=== PATIENT | female | born 1955 | race Caucasian/White ===

== ENCOUNTER 2019-06-25 18:06 | Emergency (ER) | payer OTHER, MEDICARE, SELFPAY ==
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
[2019-06-25 18:26] VITALS: BP 170/59; PULSE 60; RESP 20; TEMP 36.1; O2SAT 99
== END 2019-06-25 18:50 | disposition home or self-care (01) ==
PROVIDERS: Emergency Provider Nurse Practitioner Family
DX: G24.3 Spasmodic torticollis (principal); V49.40XA Driver injured in collision with unspecified motor vehicles in traffic accident, initial encounter; I10 Essential (primary) hypertension
CPT/HCPCS: 99212; G0463

== ENCOUNTER 2019-08-18 01:00 | Day surgery (SDC) | payer MEDICARE, OTHER, SELFPAY ==
[2019-08-17 14:27] VITALS: BMI 30.1
[2019-08-18] VITALS (9 sets, daily range): BP systolic 134–165; BP diastolic 61–93; PULSE 49–67; RESP 10–20; TEMP 36.1–36.7; O2SAT 92–100
[2019-08-18] MEDS: LACTATED RINGERS 1,000 ML 30 ML IV CONT ×2 (11:00→16:20)
--- NOTE | 2019-08-18 13:15 | SUR.PREOP ---
1315-PT AWARE PRIOR SURGERY DELAYS ROOM UNDETERMINED AMOUNT OF TIME.
--- NOTE | 2019-08-18 13:26 | P.PNAN_ITS ---
Anes - Initial Pre Proc Eval Procedure: Operation Date: 08/18/19 12:30 Proposed Procedures p Laparoscopic Bilateral Oophorectomy - Michele Pino MD Date/Time: 08/18/19 13:26 Surgeon: Michele Pino MD Pre Op Diagnosis: Pelvic Swelling and Mass Patient Data Age: 64 Gender: F Height: 5 ft 3 in Weight: 77 kg Last Vital Signs Temp 36.7 C 08/18/19 10:50 Pulse 60 08/18/19 10:50 Resp 20 08/18/19 10:50 BP 155/78 H 08/18/19 10:50 Pulse Ox 98 08/18/19 10:50 Allergies Allergy/AdvReac Type Severity Reaction Status Date / Time prochlorperazine Allergy Unknown SKIN Verified 08/18/19 11:19 TIGHTENING OF FOREHEAD Home Medications Medication Instructions Recorded Confirmed Type lisinopril 20 mg PO DAILY 06/25/19 08/18/19 History metoprolol tartrate 50 mg PO DAILY 06/25/19 08/18/19 History Protandim 1 cap PO DAILY 08/17/19 08/18/19 History Tumeric 1 cap PO DAILY 08/17/19 08/18/19 History Vitamin B-12 1 tablet PO DAILY 08/17/19 08/18/19 History Vitamin C 1 tablet PO DAILY 08/17/19 08/18/19 History aspirin 325 mg PO DAILY 08/17/19 08/18/19 History calcium carb-D3-mag ox-zinc ox 1 tablet PO DAILY 08/17/19 08/18/19 History [Carlos Mag Zinc Plus D3] milk thistle 1 cap PO DAILY 08/17/19 08/18/19 History multivitamin 1 tablet PO DAILY 08/17/19 08/18/19 History omega 6-fcv-fjs-fish oil [[place]-3] 1 cap PO DAILY 08/17/19 08/18/19 History vitamin E 400 unit PO DAILY 08/17/19 08/18/19 History Patient hx anesthesia problems: post op nausea/vomiting Family hx anesthesia problems: post op nausea/vomiting PMFSH Past Medical History Medical History Hypertension Neuropathy Anes - Eval Final PreProcedure Day of Procedure 08/18/19 13:26 Patient weight: obese Heart: regular rate and rhythm Lungs: decreased breath sounds Airway: Mallampati scale class II Neurological: alert and oriented Last oral intake: >/= 8 hours ASA classification: III Anesthetic plan: proceed Anesthesia type and monitoring: general ETT and standard monitoring Informed Consent: The patient's anesthetic plan and its attendant risks and benefits were discussed with the patient/family/POA. Questions were solicited and answers provided to the satisfaction of the patient/family/POA.
--- NOTE | 2019-08-18 13:28 | WPDHPUPDATE1 ---
History and Physical Update Update Date/Time: 08/18/19 13:28 History and Physical has been reviewed, including an updated exam of the patient. There are NO changes in the patient's condition. Risks, benefits, and alternatives have been discussed and questions answered. Patient agrees to proceed with procedure.
--- NOTE | 2019-08-18 15:29 | PM.PROC ---
Procedure Note - Detailed Date of procedure: 08/18/19 Pre-op diagnosis: Pelvic Swelling and Mass Procedure performed: Laparoscopic BSO Description of procedure: The patient was taken the operating room. She was prepped and draped in the dorsal lithotomy position after induction of general anesthesia. A 5 mm left upper quadrant incision was made in the abdominal skin with a scalpel. A 5 mm trocar was inserted the intra-abdominal cavity under direct visualization of the scope. A 11 mm left lower quadrant incision was made with the scalp on the abdominal skin and a 11 mm trocar was inserted the intra-abdominal cavity under direct visualization of the scope. A 5 mm infraumbilical incision was made with scalpel and a 5 mm trocar was inserted into the intra-abdominal cavity under direct visualization of the scope. On the right side the infundibulopelvic ligament was isolated. It was cauterized and transected. This was performed after the identification of the ureter. The ureters were found to be significantly anterior to the infundibulopelvic ligament at that point. The paratubal tissue was cauterized transected with cautery and scissors. This was performed in a stepwise fashion moving medially to the cornual region of the tube. The fallopian tube and suspensory ligament the ovary within cauterized transected with cautery and scissors. The ovary was placed in an endobag. It was taken out in pieces through the left lower quadrant trocar site. It was enlarged due to the tumor that was present. No tumor mass or fluid was spilled into the abdomen. The ovary on the left side was removed in identical fashion. It was removed intact. It was considerably smaller. Normal saline fluid was irrigated into the pelvis. Some of this fluid was then suctioned out and sampled. It was sent to the lab for cytology. The pneumoperitoneum was reduced. The trocars were removed. The patient was taken recovery room stable condition. Sponge lap and needle counts were correct x2. Anesthesia: GETA Surgeon: Michele Pino MD Estimated blood loss (mL): 30 Drains: No Packing: No Pathology: yes Complications: No immediate complications Condition: stable Disposition: PACU Findings: Markedly enlarged right ovary, normal-appearing tubes and left ovary. Normal-appearing uterus.
--- NOTE | 2019-08-18 17:08 | SUR.PHASEII ---
[address] aguirre to get something different for pain, gave me a new order for 1g tylenol
== END 2019-08-18 18:01 | disposition home or self-care (01) ==
PROVIDERS: PCP Internal Medicine; Visit Provider Obstetrics & Gynecology
PROC: (CPT 49320; principal; 2019-08-18 12:30)
DX: D27.0 Benign neoplasm of right ovary (principal); N73.6 Female pelvic peritoneal adhesions (postinfective); I10 Essential (primary) hypertension; G62.9 Polyneuropathy, unspecified; Z79.82 Long term (current) use of aspirin; E66.9 Obesity, unspecified; Z68.30 Body mass index [BMI] 30.0-30.9, adult
CPT/HCPCS: 58661; 88104; 88108; 88305; 88307; A9270; J0131; J1100; J2250; J2405; J3010; J7120; Q9968

== ENCOUNTER → 2020-09-27 12:32 | Outpatient (CLI) | payer MEDICARE, OTHER, SELFPAY ==
--- NOTE | ~2020-09-27 | DEXA_ITS ---
Bone Density Report Name: Jeane Moseley Age: 65 Sex: Female Ethnicity: White Date of : 1955 Indication: osteopenia; height loss; hysterectomy; rheumatoid arthritis; Referring Provider: Issac, Concepcion Valenzuela Study: Bone densitometry was performed. Exam Date: September 27, 2020 Accession number: [id number] Bone Density: Region BMD T-score Z-score Classification AP Spine (L1-L4) 0.850 -1.8 0.1 Osteopenia Femoral Neck (Left) 0.739 -1.0 0.7 Normal Total Hip (Left) 0.884 -0.5 0.9 Normal Femoral Neck (Right) 0.692 -1.4 0.2 Osteopenia Total Hip (Right) 0.801 -1.2 0.2 Osteopenia Total Hip Mean 0.843 -0.9 0.6 Normal World Health Organization criteria for BMD impression classify patients as: Normal (T-score at or above -1.0), Osteopenia (T-score between -1.0 and -2.5), or Osteoporosis (T-score at or below -2.5). 10-year Fracture Risk(1): Major Osteoporotic Fracture 14% Hip Fracture 2.2% Reported Risk Factors: [place] (), Neck BMD=0.692, BMI=28.3, rheumatoid arthritis, alcohol use (1) FRAX(R) Version 3.08. Fracture probability calculated for an untreated patient. Fracture probability may be lower if the patient has received treatment. Previous Exams: Region Exam Age BMD T-score BMD Change BMD Change Date g/cm2 vs Baseline vs Previous AP Spine(L1-L4) 09/27/2020 65 0.850 -1.8 -0.075* -0.036* 05/28/2018 63 0.886 -1.5 -0.039* 0.029* 03/18/2012 57 0.857 -1.7 -0.068* -0.087* 04/19/2008 53 0.944 -0.9 0.019 0.019 11/14/2005 50 0.925 -1.1 Total Hip(Left) 09/27/2020 65 0.884 -0.5 -0.057* -0.049* 05/28/2018 63 0.933 -0.1 -0.008 0.005 03/18/2012 57 0.927 -0.1 -0.013 0.043* 04/19/2008 53 0.884 -0.5 -0.056* -0.056* 11/14/2005 50 0.940 0.0 Total Hip(Right) 09/27/2020 65 0.801 -1.2 -0.106* -0.054* 05/28/2018 63 0.854 -0.7 -0.053* -0.032* 03/18/2012 57 0.886 -0.5 -0.021 0.039* 04/19/2008 53 0.847 -0.8 -0.060* -0.060* 11/14/2005 50 0.907 -0.3 *Denotes significance at 95% confidence level, LSC for AP Spine = 0.022 g/cm2, LSC for Total Hip = 0.027 g/cm2 Clinical Information Provided by Patient: Has rheumatoid arthritis Has 3 or more alcoholic drinks per day Has used the following medications: Vitamin D, Calcium Has the following m
--- NOTE | ~2020-09-27 | MM_ITS ---
EXAMINATION: MM screening filipe BI w brandon HISTORY: Screening TECHNIQUE: Craniocaudal and mediolateral oblique 3-D tomosynthesis images were obtained and synthetic 2-D images were generated. CAD analysis was submitted and interpreted. COMPARISON: Comparison to multiple prior studies sequentially, with oldest reviewed study dated 10/2011. BREAST PARENCHYMAL COMPOSITION: Breast composed of scattered areas of fibroglandular density FINDINGS: There are no suspicious masses, calcifications or architectural distortion in the right tori ast to suggest malignancy. There is a new cluster of calcifications in the upper outer quadrant of th e left breast anteriorly. IMPRESSION: 1. New cluster of left breast calcifications, upper outer quadrant anteriorly. 2. Magnification views are recommended. BI-RADS Category 0: Incomplete: Needs additional imaging evaluation. Reviewed, dictated and finalized at location A.
== END ==
PROVIDERS: Visit Provider Advanced Practice Midwife
DX: Z12.31 Encounter for screening mammogram for malignant neoplasm of breast (principal); Z78.0 Asymptomatic menopausal state; M85.88 Other specified disorders of bone density and structure, other site; M85.851 Other specified disorders of bone density and structure, right thigh
CPT/HCPCS: 77063; 77067; 77080

== ENCOUNTER → 2020-10-25 09:11 | Outpatient (CLI) | payer MEDICARE, OTHER, SELFPAY ==
--- NOTE | ~2020-10-25 | MM_ITS ---
EXAMINATION: MM diagnostic mammo unilat LT HISTORY: Indeterminate left breast calcifications on screening mammogram TECHNIQUE: Additional images of the left breast were performed. CAD analysis was submitted and interp reted. COMPARISON: 09/27/2020,05/28/2018, 03/05/2013 BREAST PARENCHYMAL COMPOSITION: There are scattered areas of fibroglandular density. FINDINGS: There are grouped fine pleomorphic calcifications anterior third upper, slightly outer jasmeet st at the 2:00 to 3:00 location 3 cm from the nipple. No associated mass is identified. IMPRESSION: 1. Suspicious left breast calcifications. 2. Stereotactic biopsy is recommended. BI-RADS category 4, suspicious findings. Reviewed, dictated and finalized at location A.
== END ==
PROVIDERS: Visit Provider Advanced Practice Midwife
DX: R92.8 Other abnormal and inconclusive findings on diagnostic imaging of breast (principal)
CPT/HCPCS: 77065

== ENCOUNTER 2021-04-19 13:17 | Emergency (ER) | payer OTHER, MEDICARE, SELFPAY ==
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
[2021-04-19 13:42] VITALS: BP 152/65; PULSE 80; RESP 18; TEMP 37.7; O2SAT 98
[2021-04-19 13:51] VITALS: BP 152/65; PULSE 80; RESP 18; TEMP 37.7; O2SAT 98
== END 2021-04-19 13:55 | disposition home or self-care (01) ==
PROVIDERS: Emergency Provider Nurse Practitioner Family
DX: S16.1XXA Strain of muscle, fascia and tendon at neck level, initial encounter (principal); V40.9XXA Unspecified car occupant injured in collision with pedestrian or animal in traffic accident, initial encounter; I10 Essential (primary) hypertension; G62.9 Polyneuropathy, unspecified
CPT/HCPCS: 99213; G0463

== ENCOUNTER → 2021-10-30 16:17 | Outpatient (CLI) | payer MEDICARE, OTHER, SELFPAY ==
--- NOTE | ~2021-10-30 | XR_ITS ---
EXAMINATION: XR knee RT 2V DATE: 10/30/2021 16:40 INDICATION: Right knee pain. TECHNIQUE: 2 views of right knee were obtained. COMPARISON: None. FINDINGS: Bone alignment is normal. No fracture. There is severe osteoarthritis of lateral and patell ofemoral compartments and moderate osteoarthritis of medial compartment. There is a small knee joint effusion. IMPRESSION: 1. Severe right knee osteoarthritis. 2. Small right knee joint effusion. Reviewed, dictated and finalized at location A.
--- NOTE | ~2021-10-30 | XR_ITS ---
EXAMINATION: XR knee LT 2V DATE: 10/30/2021 16:40 INDICATION: Left knee pain. TECHNIQUE: 2 views of left knee were obtained. COMPARISON: None. FINDINGS: Bone alignment is normal. No fracture. There is severe osteoarthritis of medial compartment and mild osteoarthritis of lateral and patellofemoral compartments. There is a moderate-sized knee j oint effusion. IMPRESSION: 1. Severe left knee osteoarthritis. 2. Moderate-sized left knee joint effusion. Reviewed, dictated and finalized at location A.
== END ==
PROVIDERS: PCP Nurse Practitioner Family; Visit Provider Nurse Practitioner Family
DX: M25.561 Pain in right knee (principal); M17.0 Bilateral primary osteoarthritis of knee; M25.462 Effusion, left knee; M25.461 Effusion, right knee
CPT/HCPCS: 73560

== ENCOUNTER 2022-04-12 08:53 | Outpatient (CLI) | payer MEDICARE, OTHER, SELFPAY ==
--- NOTE | 2022-04-12 | EST_ITS ---
Patient Info Name: Jeane Moseley Age: 67 years : 1955 Gender: Female Ht: 52 in Wt: 150 lbs BSA: 1.63 m2 HR: 56 bpm BP: 130 / 75 mmHg Heart Rhythm: Sinus Rhythm Exam Date: 04/12/2022 10:56 AM Exam Location: [facility] Stress Patient Status: Outpatient Admit Date: 04/12/2022 Staff Ordering Physician: Jose Angel Yoon MD Attending Provider: Jose Angel Yoon MD Exercise Technologist: Madison Hdz CT Nurse: MAXWELL Exam Type: CA stress reshma w NM Study Info Indications Z01.810 - Encounter for preprocedural cardiovascular examination A regadenoson stress test was performed. Summary 1. No abnormal ST/T wave changes diagnostic of ischemia with Lexiscan. 2. Please correlate with nuclear medicine images, reported separately. Protocol: Lexiscan Stress ECG Details Stage: REST Duration (min): 1 min : 14 sec HR (bpm): 58 SBP (mmHg): 130 DBP (mmHg): 75 Stage: REST Duration (min): 4 min : 47 sec HR (bpm): 57 SBP (mmHg): 130 DBP (mmHg): 75 Stage: STAGE 1 Duration (min): 1 min : 0 sec HR (bpm): 71 SBP (mmHg): 136 DBP (mmHg): 78 Stage: RECOVERY Duration (min): 1 min : 0 sec HR (bpm): 84 SBP (mmHg): 136 DBP (mmHg): 78 Stage: RECOVERY Duration (min): 2 min : 0 sec HR (bpm): 77 SBP (mmHg): 136 DBP (mmHg): 78 Stage: RECOVERY Duration (min): 3 min : 0 sec HR (bpm): 74 SBP (mmHg): 165 DBP (mmHg): 77 Stage: RECOVERY Duration (min): 3 min : 9 sec HR (bpm): 73 SBP (mmHg): 165 DBP (mmHg): 77 Rest HR: 57 bpm Peak HR: 90 bpm Rest Sys BP: 130 mmHg Peak Sys BP: 165 mmHg Max Pred HR: 151 bpm % Max Pred HR: 60 % Target HR: 128 bpm Max RPP: 14,850 bpm*mmHg BP Response: Normal blood pressure response Total Time: 1 min : 0 sec Rest Brizuela BP: 75 mmHg Peak Brizuela BP: 77 mmHg Total Dose: 0.4 mg Resting ECG Sinus bradycardia. Stress ECG Sinus rhythm. No abnormal ST/T wave changes diagnostic of ischemia with Lexiscan. Arrhythmias Occasional PACs. Report Signatures
--- NOTE | ~2022-04-12 | NM_ITS ---
EXAMINATION: NM reshma stress w perfusion DATE: 04/12/2022 14:20 ROUTE DRIVER INDICATION: Preop cardiac examination TECHNIQUE: Rest images were obtained following intravenous administration of 8.1 mCi Tc99m tetrofosmi n (Myoview). The patient was infused intravenously with Lexiscan (regadenoson). Then, 26.5 mCi Tc99m tetrofosmin (Myoview) was administered intravenously, and stress images were obtained. Data was recon structed into short axis and horizontal and vertical long axis SPECT images. Gated SPECT images were also obtained. COMPARISON: None. FINDINGS: There is no definite reversible or fixed perfusion abnormality to suggest ischemia or infar ction. There is no segmental wall motion abnormality. Left ventricular ejection fraction measures 6 1%. IMPRESSION: 1. No definite ischemia or infarct. 2. Normal left ventricular ejection fraction measuring 61%. Reviewed, dictated and finalized at location A. E DRIVER
== END 2022-04-12 08:54 | disposition home or self-care (01) ==
DX: Z01.810 Encounter for preprocedural cardiovascular examination (principal); I10 Essential (primary) hypertension; E78.49 Other hyperlipidemia
CPT/HCPCS: 78452; 93017; A9502; J2785

== ENCOUNTER 2023-03-02 11:25 | Emergency (ER) | payer MEDICARE, OTHER, SELFPAY ==
--- NOTE | ~2023-03-02 | XR_ITS ---
XR knee RT min 4V 03/02/2023 12:10 Indication: Right knee pain Procedure: 3 views right knee Comparison: 10/30/2021 Findings: There is moderate-severe tricompartment osteoarthritis. Small joint effusion. No acute frac ture or traumatic malalignment. No foreign bodies. Impression: 1: Moderate-severe tricompartment osteoarthritis of the right knee. Reviewed, dictated and finalized at location A. Impression: 1: Moderate-severe tricompartment osteoarthritis of the right knee.
--- NOTE | ~2023-03-02 | US_ITS ---
EXAMINATION:US venous doppler LE RT INDICATION:Right leg DVT TECHNIQUE: Multiple grayscale, color flow and Doppler images of the right lower extremity deep venous systems were obtained and reviewed. COMPARISON:No prior studies for comparison. FINDINGS: The common femoral, superficial femoral and popliteal veins demonstrate normal respiratory variation, augmentation and compressibility. Color flow is also seen within the posterior tibial, pe roneal, greater saphenous and profunda veins. IMPRESSION: 1: No lower extremity deep venous thrombosis. Reviewed, dictated and finalized at location A.
[2023-03-02 11:29] VITALS: BP 145/75; PULSE 73; RESP 16; TEMP 36.6; O2SAT 100
--- NOTE | 2023-03-02 11:50 | ED.EXTPRO ---
HPI - Extremity Problem General Chief complaint: Extremity Problem,Nontraumatic Stated complaint: lower extremity Time Seen by Provider: 03/02/23 11:34 Source: patient Mode of arrival: ambulatory Limitations: no limitations History of Present Illness HPI Narrative: This is a 67 year old female that presents to the ER for right knee pain and swelling. Ongoing over the last couple of days. Reports pain behind her knee which concerned her for a possible DVT. Does report history of low back problems and pain that radiates into her right leg chronically. Also reports she has been to see an orthopedic surgeon for her knee. Reports she took Tylenol this morning with some relief. Denies erythema. Related Data Home Medications Medication Instructions Recorded Confirmed lisinopril 20 mg tablet 20 mg PO DAILY 06/25/19 04/19/21 metoprolol tartrate 50 mg tablet 50 mg PO DAILY 06/25/19 04/19/21 Protandim 1 cap PO DAILY 08/17/19 04/19/21 Tumeric 1 cap PO DAILY 08/17/19 04/19/21 Vitamin B-12 1 tablet PO DAILY 08/17/19 04/19/21 Vitamin C 1 tablet PO DAILY 08/17/19 04/19/21 aspirin 325 mg tablet 325 mg PO DAILY 08/17/19 04/19/21 calcium carb 333 mg-vit D3 133 1 tablet PO DAILY 08/17/19 04/19/21 unit-mag ox 133 mg-zinc oxide 5 mg tab (Carlos Mag Zinc Plus D3) milk thistle 1 cap PO DAILY 08/17/19 04/19/21 multivitamin 1 tablet PO DAILY 08/17/19 04/19/21 omega 3 350 mg-dha 235 mg-epa 90 1 cap PO DAILY 08/17/19 04/19/21 mg-fish oil 597 mg capsule,delay rel ([place]-3) vitamin E 268 mg (400 unit) capsule 400 unit PO DAILY 08/17/19 04/19/21 meloxicam 15 mg tablet 15 mg PO DAILY 04/19/21 04/19/21 Allergies Allergy/AdvReac Type Severity Reaction Status Date / Time prochlorperazine Allergy Unknown SKIN Verified 03/02/23 11:27 TIGHTENING OF FOREHEAD Review of Systems Review of Systems: CONSTITUTIONAL: Denies fever SKIN: Denies rash MUSCULOSKELETAL: Reports back pain, joint pain, and myalgia. NEUROLOGIC: Denies numbness All systems reviewed & are unremarkable except as noted in HPI and below PMFSH Past Medical History Medical History (Updated 03/02/23 @ 13:54 by Dede Coker PA-C) Hypertension Neuropathy Social History Social History (Updated 03/02/23 @ 11:53 by Dede Coker PA-C) Substance use: never Exam Narrative: GENERAL: Well-appearing, well-nourished, and in no acute distress. HEAD: Normocephalic, atraumatic. EYES: EOMI. CHEST: Clear to auscultation. No respiratory distress. No wheezes rales or rhonchi HEART: Regular rate and rhythm. No murmur heard. Normal peripheral pulses. EXTREMITIES: Normal range of motion. No edema, erythema or warmth. Normal DP pulse. Normal sensation SKIN: Warm, dry, no rash. NEURO: No focal deficits. Alert and oriented x3. PSYCH: Normal mood and affect Course Course Emergency Course: Patient updated on workup thus far. I was able to review some of her recent studies with sodium values 132-133. She refuses any further treatment of this with IV fluids. Given water to hydrate orally. Vital Signs Vital signs: Vital Signs Temperature 98 F 03/02/23 11:29 Pulse Rate 73 03/02/23 11:29 Respiratory Rate 16 03/02/23 11:29 Blood Pressure 145/75 H 03/02/23 11:29 Pulse Oximetry 100 03/02/23 11:29 Temperature 98 F 03/02/23 11:29 Pulse Rate 73 03/02/23 11:29 Respiratory Rate 16 03/02/23 11:29 Blood Pressure 145/75 H 03/02/23 11:29 Pulse Oximetry 100 03/02/23 11:29 MDM - Extremity (Nontraumatic) MDM Narrative Medical decision making narrative: Patient presents to the ER for right lower extremity pain and swelling. She is afebrile and nontoxic appearing. She is neurologically intact. Right knee x-ray shows moderate-severe tricompartmental osteoarthritis. Right lower extremity venous Doppler without evidence of DVT. Blood work significant for hyponatremia with sodium of 127. I was able to review some of her recent blood work wi
[2023-03-02 12:11] LABS: Basophils Absolute Auto 0.1 K/mm3 (0.0-0.1); Basophils Percent Auto 1.8 % (0.2-1.2); Eosinophils Absolute Auto 0.2 K/mm3 (0-0.3); Eosinophils Percent Auto 3.8 % (0-4.4); Hematocrit 35.7 % (37.0-47.0); Hemoglobin 12.1 g/dL (12.0-15.0); Immature Granulocyte Absolute 0.01 K/mm3 (0.00-0.031); Immature Granulocyte Percent A 0.2 % (0-0.5); Lymphocytes Absolute Auto 1.09 K/mm3 (0.9-3.2); Lymphocytes Percent Auto 24.3 % (18.3-44.2); Mean Corpuscular HGB Conc 33.9 g/dl (32-36); Mean Corpuscular Hemoglobin 31.7 pg (26-34); Mean Corpuscular Volume 93.5 fl (80-100); Monocytes Absolute Auto 0.6 K/mm3 (0.1-0.6); Monocytes Percent Auto 12.7 % (2.6-8.5); Neutrophils Absolute Auto 2.6 K/mm3 (1.3-6.7); Neutrophils Percent Auto 57.2 % (45.5-73.1); Platelet Count Result 267 k/mm3 (150-375); Red Blood Count 3.82 M/mm3 (4.2-5.4); White Blood Count 4.5 K/mm3 (4.5-10.0)
[2023-03-02 12:20] LABS: Anion Gap 8 mmol/L (8-16); Blood Urea Nitrogen 15 mg/dL (7-17); Carbon Dioxide 26 mmol/L (22-30); Chloride 93 mmol/L (98-107); Estimated CRCL calculation 63 ml/min; Estimated Glomerular Filt Rate > 60; Glucose 98 mg/dL (65-110); Sodium 127 mmol/L (137-145)
== END 2023-03-02 14:12 | disposition home or self-care (01) ==
PROVIDERS: Emergency Provider Physician Assistant
DX: M17.11 Unilateral primary osteoarthritis, right knee (principal); E87.1 Hypo-osmolality and hyponatremia; I10 Essential (primary) hypertension; G62.9 Polyneuropathy, unspecified; M79.604 Pain in right leg; Z79.82 Long term (current) use of aspirin
CPT/HCPCS: 36415; 73564; 80048; 85025; 93971; 99284

== ENCOUNTER 2023-07-12 17:53 | Emergency (ER) | payer MEDICARE, OTHER, SELFPAY ==
--- NOTE | 2023-07-12 18:09 | ED.URI ---
HPI - URI/Sore Throat General Chief Complaint: Upper Respiratory Infection Stated Complaint: CONGESTION/SLIGHT SORE THROAT Time Seen by Provider: 07/12/23 18:09 Source: patient Mode of arrival: ambulatory Limitations: no limitations History of Present Illness HPI Narrative: 68-year-old female presents to [facility] with complaint of his throat, nasal congestion, nonproductive cough, bilateral ear pressure for 2-3 days. Patient endorses that was recently seen here for upper respiratory infection. Patient has daughter visiting tomorrow and wanted to rule out having anything contagious. Patient denies chest pain, shortness of breath, headache. Patient endorses allergy to Compazine. Patient able to control secretions and able to tolerate fluids by mouth. Related Data Home Medications Medication Instructions Recorded Confirmed lisinopril 20 mg tablet 20 mg PO DAILY 06/25/19 04/19/21 metoprolol tartrate 50 mg tablet 50 mg PO DAILY 06/25/19 04/19/21 Protandim 1 cap PO DAILY 08/17/19 04/19/21 Tumeric 1 cap PO DAILY 08/17/19 04/19/21 Vitamin B-12 1 tablet PO DAILY 08/17/19 04/19/21 Vitamin C 1 tablet PO DAILY 08/17/19 04/19/21 aspirin 325 mg tablet 325 mg PO DAILY 08/17/19 04/19/21 calcium carb 333 mg-vit D3 133 1 tablet PO DAILY 08/17/19 04/19/21 unit-mag ox 133 mg-zinc oxide 5 mg tab (Carlos Mag Zinc Plus D3) milk thistle 1 cap PO DAILY 08/17/19 04/19/21 multivitamin 1 tablet PO DAILY 08/17/19 04/19/21 omega 3 350 mg-dha 235 mg-epa 90 1 cap PO DAILY 08/17/19 04/19/21 mg-fish oil 597 mg capsule,delay rel ([place]-3) vitamin E 268 mg (400 unit) capsule 400 unit PO DAILY 08/17/19 04/19/21 Allergies Allergy/AdvReac Type Severity Reaction Status Date / Time prochlorperazine Allergy Unknown SKIN Verified 03/02/23 11:27 TIGHTENING OF FOREHEAD Review of Systems Review of Systems: All systems reviewed & are unremarkable except as noted in HPI and below Constitutional: Constitutional: Reports as per HPI, Denies body ache(s), Denies chills, Denies fever(s) and Denies headache(s) Eyes: Eyes: Reports no additional eye complaints ENT: Denies headache(s), Reports nasal congestion, Reports sore throat, Denies throat swelling and Reports other ( bilateral ear discomfort) Cardiovascular: Cardiovascular: Reports no additional cardiovascular complaints, Denies chest pain and Denies dyspnea Respiratory: Respiratory: Reports no additional respiratory complaints, Reports cough ( Nonproductive) and Denies dyspnea Musculoskeletal: Musculoskeletal: Reports no additional musculoskeletal complaints Neurologic: Reports system reviewed and no additional complaints, except as documented Psychiatric: Psychiatric: Reports no additional psychiatric complaints PMFSH Past Medical History Medical History (Updated 07/12/23 @ 18:40 by Ambreen Portillo APRN) Hypertension Neuropathy Social History Social History (Updated 03/02/23 @ 11:53 by Dede Coker PA-C) Substance use: never Comments At the time of my signature, I reviewed and agree with the nursing past medical, surgical, social, and family history. There is no relevant family history pertinent to the patient complaint. Exam Const: General: cooperative, no acute distress, alert, anxious, ill appearing and well nourished Nutritional Appearance: well nourished Orientation/consciousness: patient oriented x3 Limitations: no limitations HENMT: Head: normal to inspection Ears: external ears normal Face/Nose/Sinus: Normal external nose present, Normal nares present, normal facial exam, No erythema and No edema Face and sinus: normal facial exam, no erythema and no edema Mouth: Yes Normal oral and palatal mucosa present Throat: posterior oropharynx abnormal erythema and postnasal drainage Eyes: General: appearance normal, both eyes and all related structures Neck: Neck: normal visual inspection, full ROM and no meningeal signs Lymphatic: n
[2023-07-12 18:17] VITALS: BP 158/94; PULSE 78; RESP 16; TEMP 37.2; O2SAT 98
== END 2023-07-12 18:47 | disposition home or self-care (01) ==
PROVIDERS: Emergency Provider Nurse Practitioner Family
DX: J06.9 Acute upper respiratory infection, unspecified (principal); B34.9 Viral infection, unspecified; Z20.822 Contact with and (suspected) exposure to COVID-19; I10 Essential (primary) hypertension; G62.9 Polyneuropathy, unspecified
CPT/HCPCS: 87426; 87804; 99213; G0463

== ENCOUNTER 2023-07-14 14:03 | Emergency (ER) | payer MEDICARE, OTHER, SELFPAY ==
[2023-07-14 14:17] VITALS: BP 152/69; PULSE 69; RESP 18; TEMP 36.5; O2SAT 100
--- NOTE | 2023-07-14 14:38 | ED.GENADULT ---
HPI - General Adult General Chief complaint: Upper Respiratory Infection Stated complaint: Cough,Congestion,Shortness of Breath Time Seen by Provider: 07/14/23 14:39 Source: patient Mode of arrival: ambulatory Limitations: no limitations History of Present Illness HPI narrative: 5-year-old female patient presents to the [facility] with complaints of a cough, slight shortness of breath, runny nose and congestion for the past 3-4 days. Denies fevers, body aches or chills. Denies any chest pain currently. Denies any abdominal pain, nausea, vomiting or diarrhea. Patient states she has been using [id number] Delsym for her cough. Patient was seen at [facility] this past Saturday and was tested for influenza and COVID after only having symptoms for 1 day and tested negative. They did recommend that she be retested in a couple of days she continued to have symptoms. Related Data Home Medications Medication Instructions Recorded Confirmed lisinopril 20 mg tablet 20 mg PO DAILY 06/25/19 04/19/21 metoprolol tartrate 50 mg tablet 50 mg PO DAILY 06/25/19 04/19/21 Tumeric 1 cap PO DAILY 08/17/19 04/19/21 Vitamin B-12 1 tablet PO DAILY 08/17/19 04/19/21 Vitamin C 1 tablet PO DAILY 08/17/19 04/19/21 calcium carb 333 mg-vit D3 133 1 tablet PO DAILY 08/17/19 04/19/21 unit-mag ox 133 mg-zinc oxide 5 mg tab (Carlos Mag Zinc Plus D3) multivitamin 1 tablet PO DAILY 08/17/19 04/19/21 omega 3 350 mg-dha 235 mg-epa 90 1 cap PO DAILY 08/17/19 04/19/21 mg-fish oil 597 mg capsule,delay rel ([place]-3) vitamin E 268 mg (400 unit) capsule 400 unit PO DAILY 08/17/19 04/19/21 Allergies Allergy/AdvReac Type Severity Reaction Status Date / Time prochlorperazine AdvReac Unknown SKIN Verified 07/14/23 14:31 TIGHTENING OF FOREHEAD Review of Systems Review of Systems: CONSTITUTIONAL: Denies fever, chills, or sweats. EYES: Denies visual changes, redness, or discharge. ENT: Positive rhinorrhea, congestion, sore throat, and bilateral otalgia. CARDIOVASCULAR: Denies chest pain, palpitations, or edema. RESPIRATORY: positive cough with mild intermittent dyspnea. GASTROINTESTINAL: Denies abdominal pain, nausea, vomiting, or diarrhea. GENITOURINARY: Denies dysuria or hematuria. SKIN: Denies rash or itching. MUSCULOSKELETAL: Denies back pain, joint pain, or myalgia. NEUROLOGIC: Denies headache, numbness, or weakness. PSYCHIATRIC: Denies anxiety or depression. [facility] Past Medical History Medical History (Updated 07/14/23 @ 15:02 by JAE Gonzalez) Hypertension Neuropathy Social History Social History Substance use: never Comments At the time of my signature I agree with nursing past medical history, surgical, social, and family history. There is no relevant family history pertinent to the presenting complaint. Exam Narrative: GENERAL: Well-appearing, well-nourished, and in no acute distress. HEAD: Normocephalic, atraumatic. EYES: PERRLA and EOMI. ENT: Nares with erythema edema noted bilaterally, no rhinorrhea or epistaxis. Mucous membranes moist. posterior pharynx no erythema, tonsillar enlargement, exudates or lesions present. Bilateral TMs are clear no erythema foreign bodies the canal. There is some fluid noted behind bilateral TMs. NECK: Supple. No lymphadenopathy CHEST: Clear to auscultation. No respiratory distress. HEART: Regular rate and rhythm. No murmur heard. Normal peripheral pulses. ABDOMEN: Soft, nontender, nondistended, normal active bowel sounds. EXTREMITIES: Normal range of motion. No edema. SKIN: Warm, dry, no rash. NEURO: No focal deficits. Alert and oriented x3. Course Course Level of Care: Express Care Visit Vital Signs Vital signs: Vital Signs Temperature 36.5 C 07/14/23 14:17 Pulse Rate 69 07/14/23 14:17 Respiratory Rate 18 07/14/23 14:17 Blood Pressure 152/69 H 07/14/23 14:17 Pulse Oximet
== END 2023-07-14 15:06 | disposition home or self-care (01) ==
PROVIDERS: Emergency Provider Nurse Practitioner Family
DX: J06.9 Acute upper respiratory infection, unspecified (principal); I10 Essential (primary) hypertension; Z20.822 Contact with and (suspected) exposure to COVID-19
CPT/HCPCS: 87426; 99213; G0463

== ENCOUNTER 2023-08-22 11:52 | Emergency (ER) | payer MEDICARE, OTHER, SELFPAY ==
--- NOTE | ~2023-08-22 | US_ITS ---
EXAMINATION: US right upper quadrant DATE: 08/22/2023 14:18 INDICATION: Right upper quadrant abdominal pain. TECHNIQUE: Multiple grayscale and Doppler ultrasound images of the abdomen were obtained. COMPARISON: None FINDINGS: The visualized portions of the head, body, and tail of the pancreas are normal. The liver i s normal without focal lesion. There is normal flow in main portal vein. The gallbladder is normal in size. No gallstones or gallbladder wall thickening. There was no sonographic Cates sign. The common duct is normal and measures 3 mm. IMPRESSION: 1. Normal right upper quadrant ultrasound. Reviewed, dictated and finalized at location A.
[2023-08-22 12:00] VITALS: BP 180/81; PULSE 77; RESP 18; TEMP 36.5; O2SAT 98
[2023-08-22 12:14] LABS: Basophils Absolute Auto 0.1 K/mm3 (0.0-0.1); Basophils Percent Auto 1.5 % (0.2-1.2); Eosinophils Absolute Auto 0.2 K/mm3 (0-0.3); Eosinophils Percent Auto 4.4 % (0-4.4); Hematocrit 40.3 % (37.0-47.0); Hemoglobin 13.6 g/dL (12.0-15.0); Immature Granulocyte Absolute 0.01 K/mm3 (0.00-0.031); Immature Granulocyte Percent A 0.2 % (0-0.5); Lymphocytes Absolute Auto 1.35 K/mm3 (0.9-3.2); Lymphocytes Percent Auto 25.6 % (18.3-44.2); Mean Corpuscular HGB Conc 33.7 g/dl (32-36); Mean Corpuscular Hemoglobin 32.1 pg (26-34); Mean Platelet Volume 8.7 fl (7.4-10.4); Monocytes Absolute Auto 0.6 K/mm3 (0.1-0.6); Monocytes Percent Auto 11.2 % (2.6-8.5); Neutrophils Percent Auto 57.1 % (45.5-73.1); Platelet Count Result 319 k/mm3 (150-375); Red Blood Count 4.24 M/mm3 (4.2-5.4); White Blood Count 5.3 K/mm3 (4.5-10.0)
[2023-08-22 12:20] LABS: Alanine Aminotransferase 18 U/L (6-35); Albumin Level 4.9 g/dL (3.5-5.1); Alkaline Phosphatase 88 U/L (38-126); Anion Gap 8 mmol/L (4-12); Aspartate Amino Transferase 26 U/L (14-36); Bilirubin,Total 0.7 mg/dL (0.2-1.3); Blood Urea Nitrogen 12 mg/dL (7-17); Calcium 9.7 mg/dL (8.4-10.2); Carbon Dioxide 26 mmol/L (22-30); Chloride 94 mmol/L (98-107); Estimated CRCL calculation 56 ml/min; Estimated Glomerular Filt Rate > 60; Glucose 104 mg/dL (65-110); Lipase 150 U/L (23-300); Potassium 4.1 mmol/L (3.4-5.0); Sodium 128 mmol/L (137-145)
[2023-08-22 12:57] VITALS: BP 139/67; PULSE 66; RESP 19; TEMP 36.4; O2SAT 98
[2023-08-22 13:16] LABS: Appearance Urine Clear (Clear); Bacteria Urine 4+ /hpf; Bilirubin Urine Negative (Negative); Blood Urine Negative (Negative); Color Urine Yellow (Yellow); Glucose Urine UA Negative (Negative); Ketones Urine Negative (Negative); Leukocyte Esterase Ur 1+ LEU/UL (Negative); Nitrate Urine Negative (Negative); Non Pathogenic Casts 0-2; Protein Urine Negative (Negative); RBC Urine 0-2 /hpf (0-2); Specific Grav Ur 1.006 (1.001-1.035); Squamous Epithelial Cell Urine Occasional /hpf (Few); Urobilinogen Urine 0.2 mg/dL (<2.0); pH Urine 7.5 (5.0-9.0)
[2023-08-22 13:19] LABS: Add Urine Microscopic? YES
--- NOTE | 2023-08-22 14:16 | ED.GENADULT ---
HPI - General Adult General Chief complaint: Abdominal Pain Stated complaint: abdominal pain x3 days Time Seen by Provider: 08/22/23 12:56 History of Present Illness HPI narrative: Patient is a 68-year-old female who presents ER with abdominal pain. Intermittent in the right upper quadrant. Not associated with eating or drinking. Reports that feels like being and the baby is kicking up into the ribs. She reports mild dysuria and urinary frequency like she may be developing a UTI. No fevers or chills or sweats. She has not tried any medication for her pain. Cannot describe any aggravating factors. Related Data Home Medications Medication Instructions Recorded Confirmed lisinopril 20 mg tablet 20 mg PO DAILY 06/25/19 04/19/21 metoprolol tartrate 50 mg tablet 50 mg PO DAILY 06/25/19 04/19/21 Tumeric 1 cap PO DAILY 08/17/19 04/19/21 Vitamin B-12 1 tablet PO DAILY 08/17/19 04/19/21 Vitamin C 1 tablet PO DAILY 08/17/19 04/19/21 calcium carb 333 mg-vit D3 133 1 tablet PO DAILY 08/17/19 04/19/21 unit-mag ox 133 mg-zinc oxide 5 mg tab (Carlos Mag Zinc Plus D3) multivitamin 1 tablet PO DAILY 08/17/19 04/19/21 omega 3 350 mg-dha 235 mg-epa 90 1 cap PO DAILY 08/17/19 04/19/21 mg-fish oil 597 mg capsule,delay rel ([place]-3) vitamin E 268 mg (400 unit) capsule 400 unit PO DAILY 08/17/19 04/19/21 Allergies Allergy/AdvReac Type Severity Reaction Status Date / Time prochlorperazine AdvReac Unknown SKIN Verified 07/14/23 14:31 TIGHTENING OF FOREHEAD Review of Systems Review of Systems: All systems reviewed & are unremarkable except as noted in HPI and below Constitutional: Constitutional: Reports no additional constitutional complaints ENT: Reports system reviewed and no additional complaints, except as documented Cardiovascular: Cardiovascular: Reports no additional cardiovascular complaints Respiratory: Respiratory: Reports no additional respiratory complaints Gastrointestinal: Gastrointestinal: Reports abdominal pain, Denies constipation, Denies diarrhea, Denies nausea and Denies vomiting Genitourinary: Genitourinary: Denies hematuria, Reports nocturia, Reports dysuria and Denies flank pain Musculoskeletal: Musculoskeletal: Reports no additional musculoskeletal complaints PMFSH Past Medical History Medical History (Updated 08/22/23 @ 14:36 by Sonny Del Rio MD) Hypertension Neuropathy Social History Social History Substance use: never Exam Narrative: GENERAL: Well-appearing, well-nourished, and in no acute distress. HEAD: Normocephalic, atraumatic. ENT: Mucous membranes moist. NECK: Supple. CHEST: Clear to auscultation. No respiratory distress. HEART: Regular rate and rhythm. Normal peripheral pulses. ABDOMEN: Soft, Mild epigastric /ruq discomfort without guarding, nondistended. EXTREMITIES: Normal range of motion. No edema. SKIN: Warm, dry, no rash. NEURO: Alert and oriented x3. PSYCH: Normal mood and affect. Course Course Emergency Course: informed of results. Discharge home with oral antibiotics. Discussed low-fat diet. Vital Signs Vital signs: Vital Signs Temperature 97.7 F 08/22/23 12:00 Pulse Rate 77 08/22/23 12:00 Respiratory Rate 18 08/22/23 12:00 Blood Pressure 180/81 H 08/22/23 12:00 Pulse Oximetry 98 08/22/23 12:00 Oxygen Delivery Room Air 08/22/23 12:00 Temperature 97.2 F L 08/22/23 14:19 Pulse Rate 73 08/22/23 14:19 Respiratory Rate 19 08/22/23 14:19 Blood Pressure 150/89 H 08/22/23 14:19 Pulse Oximetry 100 08/22/23 14:19 Oxygen Delivery Room Air 08/22/23 12:57 Medical Decision Making Vital Signs Vital Signs: Vital Signs Temperature 97.7 F 08/22/23 12:00 Pulse Rate 77 08/22/23 12:00 Respiratory Rate 18 08/22/23 12:00 Blood Pressure 180/81 H 08/22/23 12:00 Pulse Oximetry 98 08/22/23 12:00 Oxygen Delivery Room Air
[2023-08-22 14:19] VITALS: BP 150/89; PULSE 73; RESP 19; TEMP 36.2; O2SAT 100
== END 2023-08-22 14:51 | disposition home or self-care (01) ==
LOC: ANHED 14:38
PROVIDERS: Emergency Medicine; Emergency Provider Emergency Medicine
DX: N39.0 Urinary tract infection, site not specified (principal); I10 Essential (primary) hypertension; G62.9 Polyneuropathy, unspecified
CPT/HCPCS: 36415; 76705; 80053; 81001; 83690; 85025; 87077; 87086; 87088; 87186; 99284

== ENCOUNTER 2023-08-26 13:10 | Outpatient (CLI) | payer MEDICARE, OTHER, SELFPAY ==
[2023-08-26 22:18] LABS: Complement C3 97 mg/dL (88-165)
[2023-08-27 11:57] LABS: SS-A <1.0 NEG AI (<1.0 NEG); SS-B <1.0 NEG AI (<1.0 NEG)
[2023-08-27 14:58] LABS: Scleroderma 70 Antibody <1.0 NEG AI (<1.0 NEG)
== END 2023-08-26 13:11 | disposition home or self-care (01) ==
LOC: ANHGOSHLAB 13:14
PROVIDERS: Visit Provider Internal Medicine
DX: R76.8 Other specified abnormal immunological findings in serum (principal); M15.9 Polyosteoarthritis, unspecified; M47.812 Spondylosis without myelopathy or radiculopathy, cervical region; M47.816 Spondylosis without myelopathy or radiculopathy, lumbar region
CPT/HCPCS: 36415; 86160; 86225; 86235

== ENCOUNTER 2024-02-24 05:16 | Emergency (ER) | payer MEDICARE, OTHER, SELFPAY ==
--- NOTE | ~2024-02-24 | XR_ITS ---
Right Knee Technique: AP, lateral, and oblique views were obtained. Clinical History: Pain and swelling Findings: No fracture or dislocation is seen. There is lateral compartment narrowing with mild remode ling of the articular surface of the lateral tibial plateau. There is extensive tricompartmental oste ophyte formation.. Small joint effusion present with 8 mm loose body in the suprapatellar pouch regfabio n.. Impression: Severe tricompartmental osteoarthritis. Small joint effusion with 8 mm loose body in the suprapatellar pouch. Reviewed, dictated and finalized at location M. Impression: Severe tricompartmental osteoarthritis. Small joint effusion with 8 mm loose body in the suprapatellar pouch.
[2024-02-24 05:28] VITALS: BP 153/83; PULSE 70; RESP 18; TEMP 36.8; O2SAT 100
[2024-02-24 05:31] VITALS: BP 153/83; PULSE 69; RESP 18; O2SAT 100
[2024-02-24] MEDS: ACETAMINOPHEN 500 MG TABLET 1000 MG PO (06:21)
[2024-02-24] MEDS: KETOROLAC 30 MG/ML VIAL (*BKC) IM (06:21)
[2024-02-24] MEDS: methocarbamoL 500 MG TABLET 1000 MG PO (06:21)
--- NOTE | 2024-02-24 06:30 | ED.EXTPRO ---
HPI - Extremity Problem General Chief complaint: Extremity Problem,Nontraumatic Stated complaint: RLE pain Time Seen by Provider: 02/24/24 05:40 History of Present Illness HPI Narrative: 68-year-old female with a history of significant arthritis presenting to the emergency room with worsening right knee pain and swelling. She states that she woke up this morning with significant pain and swelling. For last 3 days she has been using her knee more in walking and ascending and descending stairs. She states she went to bed without any pain but woke up with pain. Denies any new trauma or injuries, falls. She was otherwise in her normal state of health. Has had knee injections before and told she might need knee replacement. She is currently following with Dr. Edwards.g Related Data Home Medications Medication Instructions Recorded Confirmed lisinopril 20 mg tablet 20 mg PO DAILY 06/25/19 04/19/21 metoprolol tartrate 50 mg tablet 50 mg PO DAILY 06/25/19 04/19/21 Tumeric 1 cap PO DAILY 08/17/19 04/19/21 Vitamin B-12 1 tablet PO DAILY 08/17/19 04/19/21 Vitamin C 1 tablet PO DAILY 08/17/19 04/19/21 calcium 333 mg-vit D3 133 1 tablet PO DAILY 08/17/19 04/19/21 unit-magnesium 133 mg-zinc 5 mg tablet (Carlos Mag Zinc Plus D3) multivitamin 1 tablet PO DAILY 08/17/19 04/19/21 omega 3 350 mg-dha 235 mg-epa 90 1 cap PO DAILY 08/17/19 04/19/21 mg-fish oil 597 mg capsule,delay rel ([place]-3) vitamin E 268 mg (400 unit) capsule 400 unit PO DAILY 08/17/19 04/19/21 hydrochlorothiazide 12.5 mg tablet 12.5 mg PO DAILY 08/26/23 omeprazole 40 mg capsule,delayed 40 mg PO DAILY 08/26/23 release Allergies Allergy/AdvReac Type Severity Reaction Status Date / Time clonazepam Allergy Intermediate Unknown Verified 02/24/24 05:32 prochlorperazine AdvReac Unknown SKIN Verified 02/24/24 05:32 TIGHTENING OF FOREHEAD Review of Systems Review of Systems: As reviewed above [facility] Past Medical History Medical History 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 Mucous membranes moist. NECK: Supple. CHEST: [Clear to auscultation. No respiratory distress.] HEART: [Regular rate and rhythm]. No murmur heard. [Normal peripheral pulses.] ABDOMEN: [Soft, nondistended], [nontender], [No rigidity or guarding] EXTREMITIES: Mild joint effusion of the right knee but range of motion is full with intact straight leg raise. Plantar and dorsiflexion are full. Significant tenderness with the medial and lateral joint lines of the right knee. No laxity with medial and lateral compression. Contralateral knee without any pain or joint effusions. SKIN: Warm, dry, no rash. NEURO: [No focal deficits]. Alert and oriented [x3.] PSYCH: [Normal mood and affect.] Course Vital Signs Vital signs: Vital Signs Temperature 36.8 C 02/24/24 05:28 Pulse Rate 70 02/24/24 05:28 Respiratory Rate 18 02/24/24 05:28 Blood Pressure 153/83 H 02/24/24 05:28 Pulse Oximetry 100 02/24/24 05:28 Oxygen Delivery Room Air 02/24/24 05:28 Temperature 36.8 C 02/24/24 05:28 Pulse Rate 69 02/24/24 05:31 Respiratory Rate 18 02/24/24 05:31 Blood Pressure 153/83 H 02/24/24 05:31 Pulse Oximetry 100
[2024-02-24] MEDS: predniSONE 20 MG TABLET 60 MG PO (06:59)
== END 2024-02-24 07:00 | disposition home or self-care (01) ==
PROVIDERS: Emergency Provider Student in an Organized Health Care Education/Training Program
DX: M17.11 Unilateral primary osteoarthritis, right knee (principal); I10 Essential (primary) hypertension; G62.9 Polyneuropathy, unspecified
CPT/HCPCS: 73562; 96372; 99283; A9270; J1885; J7512

== ENCOUNTER 2024-04-28 13:34 | Outpatient (CLI) | payer MEDICARE, OTHER, SELFPAY ==
[2024-04-28 21:04] LABS: Vitamin D 25 Hydroxy 44.5 ng/mL
== END 2024-04-28 13:35 | disposition home or self-care (01) ==
LOC: ANHGOSHLAB 13:37
PROVIDERS: Visit Provider Nurse Practitioner Women's Health
DX: E13.21 Other specified diabetes mellitus with diabetic nephropathy (principal); Z79.899 Other long term (current) drug therapy
CPT/HCPCS: 36415; 82306